=== PATIENT | female | born 1990 | race Caucasian/White ===

== ENCOUNTER 2024-05-13 12:37 | Inpatient (IN) | payer MEDICAID ==
[~2024-05-13] VITALS: Ht 149.9 cm; Wt 68.2 kg
[2024-05-13 13:18] LABS: BASOPHILS % (AUTO) 0.4 % (0-1); EOSINOPHILS # (AUTO) 0.1 X10'3 (0-0.9); EOSINOPHILS % (AUTO) 0.8 % (0-6); HEMOGLOBIN 14.8 g/dl (12.0-16.0); LYMPHOCYTES # (AUTO) 2.1 X10'3 (1.1-4.8); LYMPHOCYTES % (AUTO) 20.4 % (21-51); MEAN CORPUSCULAR HEMOGLOBIN 30.8 PG (27.0-31.0); MEAN CORPUSCULAR VOLUME 93.2 FL (78-98); MEAN PLATELET VOLUME 8.1 FL (7.4-10.4); MONOCYTES # (AUTO) 0.8 X10'3 (0-0.9); MONOCYTES % (AUTO) 8.3 % (2-12); NEUTROPHILS # (AUTO) 7.1 X10'3 (1.8-7.7); NEUTROPHILS % (AUTO) 70.1 % (42-75); PLATELET COUNT 290 X10'3 (140-440); RED BLOOD COUNT 4.82 X10'6 (4.20-5.60); RED CELL DISTRIBUTION WIDTH 12.8 % (11.5-14.5); WHITE BLOOD COUNT 10.2 X10'3 (4.5-11.0)
[2024-05-13 13:31] LABS: ALANINE AMINOTRANSFERASE 23 U/L (12-78); ALKALINE PHOSPHATASE 69 IU/L (46-116); ANION GAP 10 (8-16); ASPARTATE AMINO TRANSFERASE 21 U/L (10-37); BILIRUBIN,TOTAL 0.5 MG/DL (0.1-1.0); BLOOD UREA NITROGEN 12 MG/DL (7-18); BUN/CREATININE RATIO 16.2 (10.0-20.0); CHLORIDE 101 MMOL/L (99-107); CREATININE 0.74 MG/DL (0.40-0.90); GLUCOSE 101 MG/DL (70-104); POTASSIUM 3.6 MMOL/L (3.5-5.1); SODIUM 136 MMOL/L (135-145); TOTAL CARBON DIOXIDE 25.4 MMOL/L (24-32); TOTAL PROTEIN 7.9 G/DL (6.4-8.2); eCRCL 73 ML/MIN; eGFR 90 ML/MIN
[2024-05-13 13:37] LABS: PRO BRAIN NATRIURETIC PEPTIDE 79 PG/ML (0-125)
[2024-05-13 15:43] LABS: LIPASE 27 U/L (16-77)
[2024-05-13 17:14] LABS: URINE HCG NEGATIVE (NEG)
[2024-05-13] MEDS ORDERED: iohexol 300mg/ml 100ml inj. ONE (17:17)
[2024-05-13] MEDS: ondansetron/PF 4mg/2ml inj IV STA (17:49)
[2024-05-13] MEDS: morphine 4 MG/ML inj SYRINge IV STA (17:50)
[2024-05-13] MEDS: normal saline 1000ml 1,000 ML IV STA (17:50)
[2024-05-13] MEDS ORDERED: nicotine 7mg patch - 24hr TD PRN (19:15)
[2024-05-13] MEDS ORDERED: potassium Cl 40MEQ/1/2NS 520ml 520 ML IV PRN (21:05)
[2024-05-13] MEDS ORDERED: magnesium sulf-water 2g/50mL 50 ML IV PRN (21:05)
[2024-05-13] MEDS ORDERED: potassium Cl 20 mEq SR tablet PO PRN ×2 (21:05)
[2024-05-13] MEDS ORDERED: magnesium sulf-water 4G/100mL 100 ML IV PRN (21:05)
[2024-05-13] MEDS ORDERED: magnesium hydroxide 30ml (MOM) UD suspension PO PRN (21:05)
[2024-05-13] MEDS ORDERED: acetaminophen 325mg tablet PO PRN ×2 (21:05→21:20)
[2024-05-13] MEDS ORDERED: magnesium Cl slow-release 64mg tablet PO PRN (21:05)
[2024-05-13] MEDS ORDERED: mag hydrox/Alum hydrox/simeth 30ml oral suspension PO PRN (21:05)
[2024-05-13] MEDS ORDERED: morphine 2 MG/ML inj. syringe IV PRN (21:20)
[2024-05-13] MEDS ORDERED: HYDROmorphone/PF 0.2 MG/ML SYRINGE IV PRN (21:20)
[2024-05-13] MEDS ORDERED: HYDROmorphone inj. 0.5 MG/0.5 ML DISP.SYRIN IV PRN (21:20)
[2024-05-13] MEDS: ondansetron/PF 4mg/2ml inj IV PRN (21:36)
[2024-05-13] MEDS: normal saline 1000ml 1,000 ML IV SCH (21:36)
[2024-05-13] MEDS: morphine 2 MG/ML inj. syringe IV PRN (21:36)
[2024-05-14] MEDS: proCHLORperazine 10 MG/2 ml inj IV PRN (02:18)
[2024-05-14 08:00] VITALS: RESP 16
[2024-05-14] MEDS: docusate sod 100mg capsule PO SCH (08:00)
[2024-05-14] MEDS ORDERED: CefTRIAXone/D5W-Rocephin 1gm 50 ML IV SCH (08:00)
[2024-05-14] MEDS: K and/or MAG REPLACEMENT MC SCH (08:00)
[2024-05-14] MEDS: enoxaparin 40mg/0.4ml syringe SUBCUT SCH (08:00)
[2024-05-14 08:18] VITALS: BP 109/71; PULSE 58; RESP 15; TEMP 98; O2SAT 96
[2024-05-14 10:00] VITALS: BP 107/68; PULSE 63; RESP 15; TEMP 97.2; O2SAT 97
[2024-05-14] MEDS: piperacillin/tazo 3.375gm/50ml 50 ML IV SCH (10:14)
[2024-05-14 10:43] LABS: ALANINE AMINOTRANSFERASE 20 U/L (12-78); ALBUMIN 3.3 G/DL (3.4-5.0); ALBUMIN/GLOBULIN RATIO 0.9 (1.1-1.5); ALKALINE PHOSPHATASE 52 IU/L (46-116); ANION GAP 6 (8-16); ASPARTATE AMINO TRANSFERASE 12 U/L (10-37); BILIRUBIN,TOTAL 0.8 MG/DL (0.1-1.0); BLOOD UREA NITROGEN 5 MG/DL (7-18); BUN/CREATININE RATIO 6.8 (10.0-20.0); CALCIUM 8.1 MG/DL (8.5-10.1); CHLORIDE 105 MMOL/L (99-107); CREATININE 0.73 MG/DL (0.40-0.90); GLUCOSE 98 MG/DL (70-104); MAGNESIUM 2.2 MG/DL (1.5-2.4); POTASSIUM 3.8 MMOL/L (3.5-5.1); SODIUM 140 MMOL/L (135-145); TOTAL CARBON DIOXIDE 28.9 MMOL/L (24-32); TOTAL PROTEIN 6.8 G/DL (6.4-8.2); eCRCL 74 ML/MIN; eGFR > 90 ML/MIN
[2024-05-14 12:04] LABS: BASOPHILS % (AUTO) 0.4 % (0-1); EOSINOPHILS % (AUTO) 0.4 % (0-6); HEMATOCRIT 41.9 % (35.0-45.0); HEMOGLOBIN 14.2 g/dl (12.0-16.0); LYMPHOCYTES # (AUTO) 1.5 X10'3 (1.1-4.8); LYMPHOCYTES % (AUTO) 17.1 % (21-51); MEAN CORPUSCULAR HEMOGLOBIN 31.7 PG (27.0-31.0); MEAN CORPUSCULAR HGB CONC 33.8 g/dL (33.0-36.5); MEAN CORPUSCULAR VOLUME 93.7 FL (78-98); MEAN PLATELET VOLUME 8.4 FL (7.4-10.4); MONOCYTES # (AUTO) 0.8 X10'3 (0-0.9); MONOCYTES % (AUTO) 9.5 % (2-12); NEUTROPHILS # (AUTO) 6.3 X10'3 (1.8-7.7); NEUTROPHILS % (AUTO) 72.6 % (42-75); PLATELET COUNT 267 X10'3 (140-440); RED BLOOD COUNT 4.47 X10'6 (4.20-5.60); RED CELL DISTRIBUTION WIDTH 12.8 % (11.5-14.5); WHITE BLOOD COUNT 8.7 X10'3 (4.5-11.0)
[2024-05-14 18:00] VITALS: BP 90/56; PULSE 65; RESP 16; TEMP 98.2; O2SAT 97
[2024-05-14 20:00] VITALS: RESP 16; O2SAT 97
[2024-05-14 22:00] VITALS: BP 89/48; PULSE 64; RESP 17; TEMP 98.5; O2SAT 96
[2024-05-15] VITALS (24 sets, daily range): BP systolic 83–135; BP diastolic 45–98; PULSE 53–89; RESP 10–17; TEMP 97.9–98.5; O2SAT 92–100
[2024-05-15 05:16] LABS: BASOPHILS % (AUTO) 0.5 % (0-1); EOSINOPHILS # (AUTO) 0.1 X10'3 (0-0.9); MEAN CORPUSCULAR HGB CONC 32.9 g/dL (33.0-36.5); MONOCYTES # (AUTO) 0.6 X10'3 (0-0.9); MONOCYTES % (AUTO) 9.2 % (2-12)
[2024-05-15 05:35] LABS: ALANINE AMINOTRANSFERASE 16 U/L (12-78); ALBUMIN 2.9 G/DL (3.4-5.0); ALBUMIN/GLOBULIN RATIO 0.9 (1.1-1.5); ALKALINE PHOSPHATASE 46 IU/L (46-116); ANION GAP 3 (8-16); ASPARTATE AMINO TRANSFERASE 13 U/L (10-37); BILIRUBIN,TOTAL 0.8 MG/DL (0.1-1.0); BLOOD UREA NITROGEN 6 MG/DL (7-18); BUN/CREATININE RATIO 7.2 (10.0-20.0); CALCIUM 7.5 MG/DL (8.5-10.1); CHLORIDE 108 MMOL/L (99-107); CREATININE 0.83 MG/DL (0.40-0.90); GLUCOSE 92 MG/DL (70-104); POTASSIUM 4.1 MMOL/L (3.5-5.1); SODIUM 139 MMOL/L (135-145); TOTAL CARBON DIOXIDE 28.2 MMOL/L (24-32); eCRCL 65 ML/MIN; eGFR 79 ML/MIN
[2024-05-15 08:07] LABS: EOSINOPHILS % (AUTO) 1.4 % (0-6); HEMATOCRIT 39.8 % (35.0-45.0); HEMOGLOBIN 13.1 g/dl (12.0-16.0); LYMPHOCYTES # (AUTO) 1.6 X10'3 (1.1-4.8); LYMPHOCYTES % (AUTO) 26.1 % (21-51); MEAN CORPUSCULAR HEMOGLOBIN 31.1 PG (27.0-31.0); MEAN CORPUSCULAR VOLUME 94.4 FL (78-98); MEAN PLATELET VOLUME 8.7 FL (7.4-10.4); NEUTROPHILS # (AUTO) 3.9 X10'3 (1.8-7.7); NEUTROPHILS % (AUTO) 62.8 % (42-75); PLATELET COUNT 235 X10'3 (140-440); RED BLOOD COUNT 4.22 X10'6 (4.20-5.60); WHITE BLOOD COUNT 6.3 X10'3 (4.5-11.0)
[2024-05-15] MEDS: BUPIVAcaine 2.5mg/ml inj 50ml vial (contains preservative) ONE (09:18)
[2024-05-15] MEDS ORDERED: sevoflurane 250ml liquid IH ONE (10:10)
[2024-05-15] MEDS ORDERED: midazolam 1 mg/ML 2ml injection ONE (10:16)
[2024-05-15 10:20] LABS: PROTHROMBIN TIME 10.8 SECONDS (9.0-12.0)
[2024-05-15] MEDS ORDERED: fentaNYL /PF 50mcg/ml 5ml ampule ONE (10:32)
[2024-05-15] MEDS ORDERED: LIDOcaine 2% (20mg/ml) 5ml vial ONE (10:36)
[2024-05-15] MEDS ORDERED: propofol inj 20 ML IV ONE (10:36)
[2024-05-15] MEDS ORDERED: rocuronium 10mg/ml inj IV ONE (10:36)
[2024-05-15] MEDS ORDERED: ondansetron/PF 4mg/2ml inj ONE (10:36)
[2024-05-15] MEDS ORDERED: dexamethasone sod phosphate 4mg/ml inj. ONE (10:36)
[2024-05-15] MEDS: BUPIVAcaine 2.5mg/ml inj 50ml vial (contains preservative) SQ ONE (10:56)
[2024-05-15] MEDS ORDERED: sugammadex 200mg/2ml injection IV ONE (11:22)
[2024-05-15] MEDS ORDERED: morphine 10mg/ml inj. ONE (11:34)
[2024-05-15] MEDS ORDERED: glycopyrrolate 0.2mg/ml inj ONE (11:34)
[2024-05-15] MEDS ORDERED: neostigmine methylsulfate 1 MG/ML 10ml vial ONE (11:34)
[2024-05-15] MEDS ORDERED: naloxone 0.4 mg/ml inj IV PRN (11:35)
[2024-05-15] MEDS ORDERED: ondansetron/PF 4mg/2ml inj IV PRN (11:35)
[2024-05-15] MEDS ORDERED: HYDROcodone/acetaminophen 5mg/325mg tablet PO PRN (11:35)
[2024-05-15] MEDS ORDERED: morphine 4 MG/ML inj SYRINge IV PRN (11:55)
[2024-05-15] MEDS ORDERED: proCHLORperazine 10 MG/2 ml inj IV PRN (11:55)
[2024-05-15] MEDS ORDERED: hydrALAZINE 20mg/ml inj. IV PRN (11:55)
[2024-05-15] MEDS ORDERED: labetalol 20mg/4ml (5mg/ml) syringe IV PRN (11:55)
[2024-05-15] MEDS ORDERED: meperidine/PF 25mg/ml syringe IV PRN ×3 (11:55)
[2024-05-15] MEDS ORDERED: morphine 2 MG/ML inj. syringe IV PRN (11:55)
[2024-05-15] MEDS: acetaminophen 1,000mg/100ml IV 100 ML IV ONE (12:08)
[2024-05-15] MEDS: ringers solution, lacted 1,000 ML IV SCH (12:09)
[2024-05-15] MEDS: ketorolac trometh 30MG/ML vial 30 MG/ML VIAL IV ONE (12:09)
[2024-05-15] MEDS: ondansetron/PF 4mg/2ml inj IV PRN (12:13)
[2024-05-15] MEDS ORDERED: HYDR-3965 PO (16:48)
== END 2024-05-15 17:48 | disposition home or self-care (01) | DRG 263 ==
LOC: ER 12:38 → ED HOLD 21:05 → SUR 3N 05-14 07:53
PROVIDERS: ADMIT Internal Medicine Sleep Medicine; ATTEND Internal Medicine
PROC: 8E0W4CZ Robotic Assisted Procedure of Trunk Region, Percutaneous Endoscopic Approach (ICD-10-PCS; 2024-05-15)
PROC: 0FT44ZZ Resection of Gallbladder, Percutaneous Endoscopic Approach (ICD-10-PCS; principal; 2024-05-15 10:10)
DX: K80.12 Calculus of gallbladder with acute and chronic cholecystitis without obstruction (principal)
CPT/HCPCS: 36415; 71045; 74177; 74181; 76700; 80053; 81025; 82948; 83605; 83690; 83735; 83880; 84484; 85025; 85610; 87081; 93005; 93306; 96374; 96375; 99285; A4215; A4618; A7000; G0378; J0131; J0780; J1100; J1885; J2250; J2270; J2274; J2405; J2543; J2704; J2710; J3010; J3490; J7030; J7120; Q9967